=== PATIENT | male | born 1975 | race Caucasian/White ===

== ENCOUNTER 2019-11-16 18:24 | Emergency (ER) | payer OTHER, SELFPAY ==
[2019-11-16 18:36] VITALS: BP 146/80; PULSE 63; RESP 16; TEMP 36.7; O2SAT 100
--- NOTE | 2019-11-16 18:39 | ED.WOUNDLAC ---
HPI - Wound/Laceration General Chief Complaint: Wound/Laceration Stated Complaint: head injury Time Seen by Provider: 11/16/19 18:39 Source: patient and RN notes reviewed History of Present Illness HPI narrative: Patient is a 44-year-old male who presents the urgent care with complaints of a laceration to the top of the head. Patient states that he was moving brush and it went to stand up, bashing his head on the basketball rim. Patient did not lose consciousness. No other acute injuries. States that occurred prior to arrival. No other acute complaints. No acute distress noted. Patient aware of the plan of care. Related Data Home Medications Medication Instructions Recorded Confirmed hydrochlorothiazide 25 mg PO DAILY 11/16/19 11/16/19 losartan 25 mg PO DAILY 11/16/19 11/16/19 Allergies Allergy/AdvReac Type Severity Reaction Status Date / Time No Known Allergies Allergy Verified 11/16/19 18:33 Review of Systems Review of Systems: Narrative: CONSTITUTIONAL: Denies fever, chills, or sweats. EYES: Denies visual changes, redness, or discharge. ENT: Denies rhinorrhea, congestion, sore throat, or otalgia. CARDIOVASCULAR: Denies chest pain, palpitations, or edema. RESPIRATORY: Denies cough or dyspnea. GASTROINTESTINAL: Denies abdominal pain, nausea, vomiting, or diarrhea. GENITOURINARY: Denies dysuria or hematuria. SKIN: Reports of a laceration to the head MUSCULOSKELETAL: Denies back pain, joint pain, or myalgia. NEUROLOGIC: Denies headache, numbness, or weakness. All other systems reviewed are negative, except as documented in HPI. PMFSH Comments At the time of my signature, I reviewed and agree with the nursing past medical, surgical, social, and family history. There is no relevant family history pertinent to the patient complaint. Exam Narrative: Exam Narrative: GENERAL: This is a well-nourished, well-developed patient, in no apparent distress. HEAD: normocephalic, atraumatic. EYES: PERRL. Sclera clear/white. Vision is grossly intact. EARS: External ears normal NOSE: External nose normal with no obvious nasal discharge, nares without redness, no rhinorrhea. THROAT: Mucous membranes moist NECK: Neck supple SKIN: 1 cm laceration noted to the top of the head-Bleeding controlled. Warm, intact with no suspicious lesions or rash, good texture and turgor. NEURO: awake, alert, and oriented to person, place and time. There were no obvious focal neurologic abnormalities. EXTREMITIES: No clubbing, cyanosis, or edema. Course Vital Signs Vital signs: Vital Signs Temperature 98.1 F 11/16/19 18:36 Pulse Rate 63 11/16/19 18:36 Respiratory Rate 16 11/16/19 18:36 Blood Pressure 146/80 H 11/16/19 18:36 Pulse Oximetry 100 11/16/19 18:36 Temperature 98.1 F 11/16/19 18:36 Pulse Rate 63 11/16/19 18:36 Respiratory Rate 16 11/16/19 18:36 Blood Pressure 146/80 H 11/16/19 18:36 Pulse Oximetry 100 11/16/19 18:36 Reviewed?patient is informed that they may have pre-hypertension or hypertension based on a blood pressure reading in the department. I recommend the patient call the primary care provider listed on their discharge instructions or a physician of their choice this week to arrange follow-up for further evaluation of possible pre-hypertension or hypertension. Procedures Laceration Laceration 1: Site: scalp Description: linear Pre-repair: irrigated (Normal saline intact and care) ====== Skin Level ====== Skin layer closed with: milagros (2) ====== Subcutaneous Layer ====== ====== Muscle Layer ====== ====== Tendon Layer ====== Dressin milagros placed to the top of the head. Patient tolerated well without anesthetic. Wounds cleaned with [employer] and normal saline prior to procedure. Procedure successful. MDM - Wound/Laceration MDM Narrative Medical decision making narrative: Advised the patient to keep the wound clean with plain
== END 2019-11-16 19:10 | disposition home or self-care (01) ==
PROVIDERS: Emergency Provider Nurse Practitioner Family
DX: S01.01XA Laceration without foreign body of scalp, initial encounter (principal); I10 Essential (primary) hypertension; W22.8XXA Striking against or struck by other objects, initial encounter
CPT/HCPCS: 12001; 99212; G0463

== ENCOUNTER 2022-12-09 08:22 | Emergency (ER) | payer OTHER, SELFPAY ==
[2022-12-09 08:32] VITALS: BP 140/99; PULSE 82; RESP 16; TEMP 36.5; O2SAT 100
--- NOTE | 2022-12-09 09:04 | ED.URI ---
HPI - URI/Sore Throat General Chief Complaint: Upper Respiratory Infection Stated Complaint: sinus pain,ear ache Time Seen by Provider: 12/09/22 09:04 Source: patient and RN notes reviewed Mode of arrival: ambulatory Limitations: no limitations History of Present Illness HPI Narrative: 47 y/o male presented for c/o stuffy nose and post nasal drainage,, ear pressure, and feels like ears drain on the inside for about one month. Denies cough, sob, wheezing, n/v/d/f/c. Taking sudafed without much relief. Denies sick contacts. MD elicited complaint: cough Related Data Home Medications Medication Instructions Recorded Confirmed hydrochlorothiazide 25 mg tablet 25 mg PO DAILY 11/16/19 12/09/22 losartan 25 mg tablet 25 mg PO DAILY 11/16/19 12/09/22 Allergies Allergy/AdvReac Type Severity Reaction Status Date / Time No Known Allergies Allergy Verified 12/09/22 08:40 Review of Systems Review of Systems: CONSTITUTIONAL: Denies malaise, chills, sweats, fever EYES: Denies visual changes, redness, or discharge ENT: Reports rhinorrhea, congestion, sinus pain, otalgia, sore throat CARDIOVASCULAR: Denies chest pain, palpitations, edema RESPIRATORY: Denies dyspnea, cough, post nasal drainage. GASTROINTESTINAL: Denies abdominal pain, nausea, vomiting, diarrhea SKIN: Denies rash or itching MUSCULOSKELETAL: Denies myalgia NEUROLOGIC: Denies headache [facility] Past Medical History Medical History (Updated 12/09/22 @ 10:02 by April Frye, ARLETH) Hypertension Exam Narrative: GENERAL: mildly Ill-appearing, nontoxic no acute distress. HEAD: Normocephalic EYES: PERRLA, conjunctivae clear ENT: Mucous membranes moist. TMs pearly judd with dull light reflex bilaterally; no tragal tenderness. Oropharynx erythematous without lesions or exudate NECK: Supple. No lymphadenopathy CHEST: Clear to auscultation, breath sounds equal. No respiratory distress, speaks in full sentences. HEART: Regular rate and rhythm. No murmur heard. SKIN: Warm, dry, no rash. NEURO: Alert and oriented x3. Course Course Emergency Course: Patient is aware of diagnosis, understands and agrees to treatment plan. Anticipatory guidance given. Patient agrees to follow-up as directed and is aware of reasons to seek care at the emergency department. Portions of this record may have been created with voice recognition software Level of Care: Express Care Visit Vital Signs Vital signs: Vital Signs Temperature 97.7 F 12/09/22 08:32 Pulse Rate 82 12/09/22 08:32 Respiratory Rate 16 12/09/22 08:32 Blood Pressure 140/99 H 12/09/22 08:32 Pulse Oximetry 100 12/09/22 08:32 Temperature 97.7 F 12/09/22 08:32 Pulse Rate 82 12/09/22 08:32 Respiratory Rate 16 12/09/22 08:32 Blood Pressure 140/99 H 12/09/22 08:32 Pulse Oximetry 100 12/09/22 08:32 reviewed MDM - URI/Sore Throat MDM Narrative Medical decision making narrative: Discussed physical exam findings. Advised supportive measures and signs/symptoms to go to the ER. Pt is appropriate for outpt treatment and f/u. Differential Diagnosis Differential diagnosis: Likely upper respiratory infection, otitis media, sinusitis and viral infection Discharge Plan Discharge Clinical Impression: Upper respiratory infection Patient Disposition: Home, Self-Care Condition: Stable Instructions: Antibiotic Form, Upper Respiratory Infection (ED) Additional Instructions: Take antibiotic as directed Recommend Flonase spray, saline spray, and Zyrtec (or Claritin/Essence) over the counter Cough syrup may cause drowsiness; avoid driving or take it at night time. Tylenol 1000mg every 8 hours as needed for pain Symptomatic treatment includes: rest, fluids, and increase humidity of the air at home. Follow up with your primary care provider in 1 week. Go to the ER for worsening symptoms or concerns. Prescriptions: New amoxicillin-pot clavulanate 875-125 mg tabl
== END 2022-12-09 09:14 | disposition home or self-care (01) ==
PROVIDERS: Emergency Provider Nurse Practitioner Family
DX: J06.9 Acute upper respiratory infection, unspecified (principal); I10 Essential (primary) hypertension
CPT/HCPCS: 99213; G0463

== ENCOUNTER 2023-08-14 08:02 | Emergency (ER) | payer OTHER, SELFPAY ==
[2023-08-14 08:09] VITALS: BP 122/87; PULSE 89; RESP 16; TEMP 36.8; O2SAT 98
--- NOTE | 2023-08-14 08:21 | ED.URI ---
HPI - URI/Sore Throat General Chief Complaint: Upper Respiratory Infection Stated Complaint: Headache;Fever Time Seen by Provider: 08/14/23 08:21 Source: patient Mode of arrival: ambulatory Limitations: no limitations History of Present Illness HPI Narrative: 48 yo M presents with c/o cough, nasal, congestion, fatigue, fever and headache for 3 days. No CP or SOB. Taking ibuprofen for fever. Well appearing. All systems reviewed and negative except as noted above. Related Data Home Medications Medication Instructions Recorded Confirmed hydrochlorothiazide 25 mg tablet 25 mg PO DAILY 11/16/19 08/14/23 losartan 25 mg tablet 25 mg PO DAILY 11/16/19 08/14/23 atorvastatin 20 mg tablet 20 mg PO DAILY 08/14/23 08/14/23 Allergies Allergy/AdvReac Type Severity Reaction Status Date / Time No Known Allergies Allergy Verified 08/14/23 08:14 Review of Systems Review of Systems: CONSTITUTIONAL: Reports fever. Denies chills, or sweats. EYES: Denies visual changes, redness, or discharge. ENT: Reports rhinorrhea, congestion. Denies sore throat, or otalgia. CARDIOVASCULAR: Denies chest pain, palpitations, or edema. RESPIRATORY: Reports cough. Denies dyspnea. GASTROINTESTINAL: Denies abdominal pain, nausea, vomiting, or diarrhea. GENITOURINARY: Denies dysuria or hematuria. SKIN: Denies rash or itching. MUSCULOSKELETAL: Denies back pain, joint pain, or myalgia. NEUROLOGIC: Denies headache, numbness, or weakness. PSYCHIATRIC: Denies anxiety or depression. All other systems reviewed are negative, except as documented in HPI. [facility] Past Medical History Medical History (Updated 08/14/23 @ 08:26 by Maria Eugenia Hull NP) Hypertension Comments At time of signature, agree with nursing past medical, surgical, social and family history. There is no relevant family history pertinent to the presenting complaint. Exam Narrative: GENERAL: This is a well-nourished, well-developed patient, in no apparent distress. HEAD: normocephalic, atraumatic. EYES: PERRL. Sclera clear/white. Vision is grossly intact. EARS: External ears normal, auditory canals clear and without drainage, TMs normal without perforation. Hearing grossly intact. NOSE: External nose normal with clear nasal drainage, congestion mild erythema THROAT: Mucous membranes moist, posterior pharynx clear. NECK: Neck supple, non-tender without lymphadenopathy, masses or thyromegaly. CARDIOVASCULAR: Regular rate and rhythm without murmurs, gallops, or rubs. RESPIRATORY: Clear to auscultation. Breath sounds equal bilaterally. No wheezes, rales, or rhonchi. SKIN: warm, Dry, intact with no suspicious lesions or rash, good texture and turgor. NEURO: awake, alert, and oriented to person, place and time. There were no obvious focal neurologic abnormalities. EXTREMITIES: No joint tenderness, effusion, or edema noted. Course Course Level of Care: Express Care Visit Vital Signs Vital signs: Vital Signs Temperature 36.8 C 08/14/23 08:09 Pulse Rate 89 08/14/23 08:09 Respiratory Rate 16 08/14/23 08:09 Blood Pressure 122/87 08/14/23 08:09 Pulse Oximetry 98 08/14/23 08:09 Temperature 36.8 C 08/14/23 08:09 Pulse Rate 89 08/14/23 08:09 Respiratory Rate 16 08/14/23 08:09 Blood Pressure 122/87 08/14/23 08:09 Pulse Oximetry 98 08/14/23 08:09 Oxygen Delivery Room Air 08/14/23 08:15 Reviewed MDM - URI/Sore Throat MDM Narrative Medical decision making narrative: Patient is aware of diagnosis, understands and agrees to treatment plan. Anticipatory guidance given. Patient agrees to follow-up as directed and is aware of reasons to seek care at the emergency department. Portions of this record may have been created with voice recognition software Differential Diagnosis Differential diagnosis: Likely other (COVID-19) Lab Data Labs: Influenza A Screen Negative Referen
== END 2023-08-14 08:31 | disposition home or self-care (01) ==
PROVIDERS: Emergency Provider Nurse Practitioner Family; PCP Nurse Practitioner
DX: U07.1 COVID-19 (principal); I10 Essential (primary) hypertension
CPT/HCPCS: 87426; 87804; 99213; G0463

== ENCOUNTER 2024-04-20 14:53 | Emergency (ER) | payer OTHER, SELFPAY ==
[2024-04-20 15:01] VITALS: BP 140/97; PULSE 77; RESP 18; TEMP 36.6; O2SAT 98
--- NOTE | 2024-04-20 15:20 | ED_ITS ---
HPI - URI/Sore Throat General Chief Complaint: Upper Respiratory Infection Stated Complaint: Sinus Infection Symptoms Time Seen by Provider: 04/20/24 15:14 Source: patient, RN notes reviewed and old records reviewed Mode of arrival: ambulatory Limitations: no limitations History of Present Illness HPI Narrative: 49 year old male who presents to [facility] care with complaints of 1.5 weeks of cough, ears hurt, some productive cough of green phlegm and also some nasal congestion with drainage. Patient denies any shortness of breath states some soreness to chest with coughing. Patient has been taking Mucinex for his symptoms without resolution of symptoms. he reports no known fevers. Reports poor sleep due to cough. MD elicited complaint: cough, sore throat, rhinorrhea and nasal congestion Onset (ago): week(s) (1.5 weeks) Consistency: constant Severity: moderate Description of mucous: green Able to tolerate fluids by mouth: Yes Treatments prior to arrival: other (Mucinex) Related Data Home Medications Medication Instructions Recorded Confirmed hydrochlorothiazide 25 mg tablet 25 mg PO DAILY 11/16/19 04/20/24 losartan 25 mg tablet 25 mg PO DAILY 11/16/19 04/20/24 atorvastatin 20 mg tablet 20 mg PO DAILY 08/14/23 04/20/24 Allergies Allergy/AdvReac Type Severity Reaction Status Date / Time No Known Allergies Allergy Verified 04/20/24 14:59 Review of Systems Review of Systems: CONSTITUTIONAL: Denies malaise, chills, sweats, or fever. EYES: Denies visual changes, redness, or discharge. ENT: Reports rhinorrhea, congestion, sinus pain, positive for otalgia and no sore throat. CARDIOVASCULAR: Denies chest pain, palpitations, or edema. RESPIRATORY: Reports cough productive of green mucous? Denies dyspnea. GASTROINTESTINAL: Denies abdominal pain, nausea, vomiting, diarrhea SKIN: Denies rash or itching. MUSCULOSKELETAL: Denies myalgia. NEUROLOGIC: Denies acute headache. All systems reviewed & are unremarkable except as noted in HPI and below PMFSH Past Medical History Medical History Hyperlipidemia Hypertension JOSE on CPAP Surgical History Surgical History H/O bilateral hip replacements Social History Social History Smoking packs per day: 0.5 Smoking cigarettes per day: 10.0 Years smoked: 15 Smoking pack-years: 7.50 Smoking status: Former smoker Tobacco type: cigarettes Additional smoking assessment comments: Quit 13 years ago Alcohol intake: current Substance use type: does not use Living arrangements: with family Gender identity (if verbalized by the patient): Male Comments At time of signature, agree with nursing past medical, surgical, social and family history. There is no relevant family history pertinent to the presenting complaint Exam Narrative: GENERAL: Well-appearing, well-nourished, and in no acute distress. HEAD: Normocephalic EYES: PERRLA, conjunctivae clear ENT: Nares clear, turbinates edematous and erythematous, clear discharge, sinus pressure. Mucous membranes moist. TM pearly judd with dull light reflex bilaterally; no tragal tenderness. Oropharynx erythematous without lesions. Tonsils not enlarged and without exudate, no drooling, no hoarseness, no linh mus, uvula midline.post nasal drainage NECK: Supple. No lymphadenopathy CHEST: Clear to auscultation, breath sounds equal. No wheezing, rhonchi, rales, or stridor. No respiratory distress, speaks in full sentences.productive cough with green tinged phlegm SAO2 98% on room air HEART: Regular rate and rhythm. No murmur heard. SKIN: Warm, dry, no rash. NEURO: Alert and oriented x3. PSYCH: Normal mood and affect Course Course Emergency Course: Patient is aware of diagnosis, understands and agrees to treatment plan.? Anticipatory guidance given.? Patient agrees to follow-up as directed and is aware of reasons to seek care at the emergency department. Portions of this record may have been created with voice recognition software Level of Care: Express Care Visit Vital Signs Vital signs: Vital Signs Temperature 36.6 C 04/20/24 15:01 Pulse Rate 77 04/20/24 15:01 Respiratory Rate 18 04/20/24 15:01 Blood Pressure 140/97 H 04/20/24 15:01 Pulse Oximetry 98 04/20/24 15:01 Oxygen Delivery Room Air 04/20/24 15:01 Temperature 36.6 C 04/20/24 15:01 Pulse Rate 77 04/20/24 15:01 Respiratory Rate 18 04/20/24 15:01 Blood Pressure 140/97 H 04/20/24 15:01 Pulse Oximetry 98 04/20/24 15:01 Oxygen Delivery Room Air 04/20/24 15:01 Reviewed MDM - URI/Sore Throat MDM Narrative Medical decision making narrative: Differential diagnosis considered: Stewart virus, strep pharyngitis, allergic rhinitis, upper respiratory tract infection, sinusitis, rhinosinusitis, nasopharyngitis. viral pharyngitis, otitis media, otitis externa, pneumonia, bronchitis, viral cough syndrome, viral syndrome, and influenza.? Exam findings show no acute concerns or changes; patient is non-toxic appearing and is in no distress.? Patient is appropriate for outpatient treatment and follow-up. Differential Diagnosis Differential diagnosis: Likely upper respiratory infection, sinusitis, viral infection, pharyngitis and other (acute cough) Medical Records Attestation: I reviewed the patient's medical records. Lab Data Attestation: I reviewed the patient's lab results. Critical Care Time Critical Care Time Critical Care Time: No Discharge Plan Discharge Clinical Impression: Sinusitis, Cough Patient Disposition: Home, Self-Care Condition: Stable Instructions: Antibiotic Form, Sinusitis (ED), Acute Cough (ED) Additional Instructions: Increase fluids especially juices and water [id number] cough and cold medicine of your choice for your symptoms Tylenol or ibuprofen for any fever pain Zyrtec Claritin or Essence daily include Coricidin brand Steroids as directed--take with food heat to the face 20-30 minutes 4-6 times a day for pain Salt water gargles, throat lozenges or throat sprays as desired Antibiotic as directed--finished the medication If your symptoms persist, change or worsen significantly before you can contact your personal physician then please, without delay, go to the emergency department for further evaluation. Follow-up with PCP in 7-10 days or sooner if needed Follow up with PCP soon in regards to your blood pressure which is elevated above threshold for referral. Blood pressure above 120/80 may indicate pre- hypertension. 140/97 Prescriptions: New amoxicillin-pot clavulanate 875-125 mg tablet 1 tablet PO Q12H Qty: 20 0RF Rx Instructions: take with food, recommend taking probiotic while on this antibiotic prednisone 20 mg tablet 20 mg PO BID Qty: 10 0RF No Action atorvastatin 20 mg tablet 20 mg PO DAILY losartan 25 mg Tablet 25 mg PO DAILY hydrochlorothiazide 25 mg Tablet 25 mg PO DAILY Follow-up/Referrals: PHYSICIAN,BOOKMOBILE LIBRARIAN [Primary Care Provider] - Time of Disposition: 15:25 Quality Elmer Coma Scale Eyes: Open Verbal: Oriented and Alert Motor: Follows Commands Elmer Coma Total Score: 15
== END 2024-04-20 15:32 | disposition home or self-care (01) ==
PROVIDERS: Emergency Provider Registered Nurse
DX: J32.9 Chronic sinusitis, unspecified (principal); R05.9 Cough, unspecified; Z87.891 Personal history of nicotine dependence; E78.5 Hyperlipidemia, unspecified; I10 Essential (primary) hypertension; G47.33 Obstructive sleep apnea (adult) (pediatric); Z96.643 Presence of artificial hip joint, bilateral
CPT/HCPCS: 99213; G0463